=== PATIENT | male | born 1945 | race Caucasian/White ===

== ENCOUNTER 2017-05-28 07:20 | Day surgery (SDC) | payer MEDICARE ==
[2017-05-28] MEDS ORDERED: LACTATED RINGERS 1,000 ML IV ONE (07:40)
[2017-05-28] MEDS ORDERED: MIDAZOLAM 2 MG/2 ML VIAL IVP ONE (08:42)
[2017-05-28] MEDS ORDERED: fentaNYL 250 MCG/5 ML VIAL IVP ONE (08:42)
[2017-05-28 09:34] VITALS: BP 107/68
== END 2017-05-28 07:21 | disposition home or self-care (01) ==
LOC: SDS 07:20
PROVIDERS: ATTEND Surgery
PROC: 0DBM8ZZ Excision of Descending Colon, Via Natural or Artificial Opening Endoscopic (ICD-10-PCS; principal; 2017-05-28 08:30)
DX: Z12.11 Encounter for screening for malignant neoplasm of colon (principal); D12.4 Benign neoplasm of descending colon; K57.30 Diverticulosis of large intestine without perforation or abscess without bleeding; K21.9 Gastro-esophageal reflux disease without esophagitis; Z87.891 Personal history of nicotine dependence
CPT/HCPCS: 45380; J3010; J7120; 88305

== ENCOUNTER 2018-01-27 16:12 | Emergency (ER) | payer MEDICARE ==
--- NOTE | 2018-01-27 17:08 | XRAY Report ---
Reason: pain Procedure Date: 01/27/2018 Accession Number: [id number] / [id number] Procedure: XR - Shoulder 3 View RT CPT Code: FULL RESULT: EXAM: RIGHT SHOULDER RADIOGRAPHY EXAM DATE: 01/27/2018 04:36 PM. CLINICAL HISTORY: Pain. Fall on stairs. COMPARISON: None. TECHNIQUE: 3 views. FINDINGS: Bones: Normal. No fracture or bone lesion. Joints: Anterior shoulder dislocation. Acromioclavicular joint is unremarkable. Soft tissues: The visualized hemithorax is unremarkable. No soft tissue swelling. IMPRESSION: 1. Right anterior shoulder dislocation. 2. No fracture is identified. Post reduction axillary and Grashey views would be of value. RADIA
--- NOTE | 2018-01-27 17:22 | ED Physician Documentation ---
PD HPI UPPER EXT INJURY - Stated complaint Stated Complaint: SHOULDER INJURY - Chief complaint Chief Complaint: Trauma Ext - History obtained from History obtained from: Patient - History of Present Illness Location: Right, Shoulder Type of injury: Fall (he slipped on steps and was holding railing, with a twist of shoulder as he fell. Denies actually hitting ground with head/chest/abd. Pain in right shoulder.) Where injury occurred: Home Timing - onset: Today Timing - details: Abrupt onset, Still present Worsened by: Moving, Palpating Associated symptoms: No: Weakness, Numbness Contributing factors: No: Anticoagulated Similar symptoms before: Has not had sx before Recently seen: Not recently seen Review of Systems Cardiac: denies: Chest pain / pressure, Palpitations, Pedal edema Respiratory: denies: Dyspnea, Cough, Wheezing GI: denies: Nausea, Vomiting Neurologic: denies: Altered mental status, Headache, Head injury PD PAST MEDICAL HISTORY - Past Medical History Cardiovascular: High cholesterol Respiratory: None Neuro: None Endocrine/Autoimmune: None GI: GERD : Frequency HEENT: None Psych: Depression Musculoskeletal: None Derm: None - Past Surgical History General: Colonoscopy HEENT: Cataracts Derm: Skin cancer surgery - Present Medications Home Medications: Ambulatory Orders Medication Instructions Recorded Confirmed Citalopram [CeleXA] 10 mg PO DAILY 10/29/13 11/25/13 Lovastatin 20 mg PO DAILY 10/29/13 11/25/13 Trazodone HCl 100 mg ORAL DAILY 11/25/13 11/25/13 - Allergies Allergies/Adverse Reactions: Allergies Allergy/AdvReac Type Severity Reaction Status Date / Time No Known Drug Allergies Allergy Verified 01/27/18 16:28 - Social History Does the pt smoke?: No Smoking Status: Never smoker Does the pt drink ETOH?: No Does the pt have substance abuse?: No - Immunizations Immunizations are current?: Yes - POLST Patient has POLST: No PD ED PE NORMAL - Vitals Vital signs reviewed: Yes - General General: Alert and oriented X 3, No acute distress, Well developed/nourished - HEENT HEENT: Atraumatic, Pharynx benign - Neck Neck: Supple, no meningeal sign, No adenopathy - Cardiac Cardiac: RRR, No murmur - Respiratory Respiratory: Clear bilaterally - Derm Derm: Normal color, Warm and dry - Extremities Extremities: Other (shoulder pain and deformity c/w anterior dislocation. ) - Neuro Neuro: Alert and oriented X 3, No motor deficit, No sensory deficit Results - Vitals Vitals: Vital Signs - 24 hr 01/27/18 01/27/18 01/27/18 16:24 19:05 19:14 Temperature 36 C L Heart Rate 58 L 65 57 L Respiratory 22 19 12 Rate Blood Pressure 141/81 H O2 Saturation 99 98 01/27/18 01/27/18 01/27/18 19:30 19:32 19:34 Temperature Heart Rate 68 65 70 Respiratory 11 L 15 13 Rate Blood Pressure 135/70 H 138/75 H O2 Saturation 92 93 01/27/18 01/27/18 01/27/18 19:35 19:44 20:47 Temperature Heart Rate 71 68 64 Respiratory 20 18 15 Rate Blood Pressure 138/75 H 116/62 O2 Saturation 97 95 Oxygen O2 Source Room air Procedures - Reduction Body part reduced: Right, Shoulder Fracture or dislocation: Dislocation Anesthesia: Conscious sedation, Fentanyl Shoulder reduction technique: [place] / ext rotation Reduction aftercare: NV intact, Xray confirms reduction, Alignment improved, Sling, Patient tolerated well - Procedural sedation Sedation prep: Informed consent, Time out completed, Last meal (12 hours ago), PE performed, AHA 1 - healthy Sedation medications: fentanyl, propofol Patient status during sedation: Responds to tactile, Vitals remained stable, Maintained airway, Recovered uneventfully. No: Respiratory depression, Hypoxia, Needed resp assistance Sedation recovery: Recovered uneventfully, Back to baseline PD MEDICAL DECISION MAKING - ED course Complexity details: reviewed results, re-evaluated patient (improved after reduction), considered differential, d/w patient Departure - Departure Disposition: 01 Home, Self Care Clinical Impression: Rotator cuff (capsule) sprain Qualifiers: Encounter type: initial encounter Laterality: right Qualified Code(s): S43.421A - Sprain of right rotator cuff capsule, initial encounter Anterior shoulder dislocation Qualifiers: Encounter type: initial encounter Laterality: right Qualified Code(s): S43.014A - Anterior dislocation of right humerus, initial encounter Fall from slip, trip, or stumble Qualifiers: Encounter type: initial encounter Qualified Code(s): W01.0XXA - Fall on same level from slipping, tripping and stumbling without subsequent striking against object, initial encounter Condition: Stable Record reviewed to determine appropriate education?: Yes Instructions: ED Dislocation Shoulder Redu Follow-Up: [facility] [Provider Group] Luisito Mcdonnell MD [Primary Care Provider] - Comments: Sling for the right arm and shoulder for now until follow-up with orthopedics in about 1-1-1/2 weeks. Call tomorrow for an appointment. He can have the shoulder and arm out of the sling at times anyone to do purposeful range of motion gently while with the just hanging down a few times a day. No overhead reaching, push pull, lifting with the arm for likely 4-6 weeks. Follow-up with orthopedics to see when you can advance activity and use of it. Tylenol or ibuprofen or naproxen if needed for pains. Discharge Date/Time: 01/27/18 21:27
[2018-01-27] MEDS ORDERED: fentaNYL 100 MCG/2 ML VIAL IVP STA ×2 (17:31→18:40)
[2018-01-27] MEDS ORDERED: KETOROLAC 60 MG/2 ML VIAL IVP STA (17:31)
[2018-01-27] MEDS ORDERED: PROPOFOL 200 MG/20 ML VIAL IVP STA (18:39)
--- NOTE | 2018-01-27 20:26 | XRAY Report ---
Reason: post reduction Procedure Date: 01/27/2018 Accession Number: [id number] / [id number] Procedure: XR - Shoulder 2 View RT CPT Code: FULL RESULT: EXAM: RIGHT SHOULDER RADIOGRAPHY EXAM DATE: 01/27/2018 08:01 PM. CLINICAL HISTORY: Right shoulder dislocation. Postreduction. COMPARISON: Earlier study from 01/27/2018. TECHNIQUE: 2 views. FINDINGS: Bones: Calcific density noted overlying the right humeral head inferior to the right glenoid not definitively seen on the current study. Joints: Interval reduction of right shoulder dislocation in anatomic alignment. Degenerative changes of the right acromioclavicular joint. Soft tissues: The visualized hemithorax is unremarkable. No soft tissue swelling. IMPRESSION: 1. Interval reduction of right shoulder dislocation in anatomic alignment. 2. Calcific density, as described not definitively seen on the current study. RADIA
[2018-01-27 20:48] VITALS: BP 116/62
== END 2018-01-27 21:27 | disposition home or self-care (01) ==
LOC: ED 16:12
DX: S43.421A Sprain of right rotator cuff capsule, initial encounter (principal); S43.014A Anterior dislocation of right humerus, initial encounter; W10.9XXA Fall (on) (from) unspecified stairs and steps, initial encounter; X50.9XXA Other and unspecified overexertion or strenuous movements or postures, initial encounter; Y92.009 Unspecified place in unspecified non-institutional (private) residence as the place of occurrence of the external cause; E78.00 Pure hypercholesterolemia, unspecified
CPT/HCPCS: 23650; 94770; 96374; 99283; 99284

== ENCOUNTER 2024-10-15 14:44 | Inpatient (IN) ==
[2024-10-15] MEDS: PANTOPRAZOLE 40 MG VIAL IVP STA (15:03)
[2024-10-15] MEDS: SODIUM CHLORIDE 0.9% 1,000 ML IV STA ×2 (15:03→18:28)
--- NOTE | 2024-10-15 15:06 | ED Physician Documentation ---
History of Present Illness Stated complaint Stated Complaint: N/V Chief complaint Chief Complaint: Abd Pain History obtained from History obtained from: Patient History of Present Illness Timing: Prior to arrival Additonal information Additional information: Graciela is an 79-year-old male presenting to the emergency department with upper abdominal pain symptoms started last night after he eating some peanuts. He notes he ate some pork ribs and then a few hours later ate some peanuts This is when he developed some serious nausea and vomiting. He notes he was having some dark emesis with that he tried to drink some sips of water but was unable to keep anything down today. He has had a normal bowel movement today and has been passing gas he has no history of abdominal surgeries no fevers or chills. His emesis is dark brown/black in color. He is not on any blood thinners and has no history of GI bleeds or history of alcohol abuse. His pain is in his upper abdomen he feels bloated to his lower abdomen and describes similar symptoms that started last week around this time. Meds/Allgy Home Medications Ambulatory Orders Medication Instructions Recorded Confirmed citalopram 10 mg tablet 10 mg PO DAILY 10/29/1309/19 trazodone 100 mg tablet 100 mg ORAL DAILY 11/25/13 0 10/12/24 finasteride 5 mg tablet 5 mg PO QDAY #90 tabs 10/12/24 loperamide 2 mg capsule 2 mg PO Q6H PRN 09/03/24 (Anti-Diarrheal (loperamide)) loratadine 10 mg tablet 10 mg PO QDAY 09/03/2410/12 (Allerclear) simvastatin 20 mg tablet 20 mg PO QPM 09/03/24 tamsulosin 0.4 mg capsule 0.4 mg PO QDAY 09/03/2409/19 melatonin PO 10/12/24 10/12/24 saw palmetto PO 10/12/24 10/12/24 Allergies Allergies Allergy/AdvReac Type Severity Reaction Status Date / Time No Known Drug Allergies Allergy Verified 10/15/24 14:53 PFSH Active Problems All Active Problems Organoaxial gastric volvulus (Acute) Hyperglycemia (Acute) Mild recurrent major depression (Acute) Elevated blood pressure reading in office without diagnosis of hypertension (Acute) Bilateral epiphora (Acute) Chronic diarrhea (Acute) Prediabetes (Acute) Bilateral hearing loss (Acute) Allergic rhinitis (Acute) Insomnia (Acute) Hyperlipemia (Acute) BPH loc w urin obs/LUTS (Acute) Medical History Medical History Hx of malignant neoplasm of skin BCC 2007 Back 2018 scalp 2019 History of reduction of open dislocation (~01/18/17) shoulder Obesity Benign prostatic disease Hx of cataract Basal cell carcinoma (BCC) in situ of skin Dislocation of shoulder joint Surgical History Surgical History History of tonsillectomy (~02/18/1947) History of rectal surgery (~02/19/04) History of bilateral cataract extraction (~02/18/14) S/P Mohs surgery for basal cell carcinoma (~04/15/17) Hx of colonoscopy (~05/28/17) Family History Family History Mother Alzheimers disease Father No problems noted. Paternal grandfather Heart attack Maternal grandfather Heart attack Social History Social History Smoking Status: Smoker current status unk If you are a former smoker, when did you quit? (Date/Year): 1969 How many cigarettes a day do you smoke? (20 cigarettes=1 Pk): 20 Do you dip or chew tobacco?: No Patient requests smoking cessation consult: No Initiate information on smoking cessation: No Do you feel safe in your home environment?: Yes History of physical, verbal, emotional, or financial abuse?: No POLST Patient has POLST: No Exam Exam Vital Signs: Vital Signs x48h Temp Pulse Resp BP Pulse Ox 10/15/24 20:19 87 22 127/78 98 10/15/24 18:00 61 18 110/85 94 10/15/24 16:45 66 17 163/88 H 98 10/15/24 15:48 50 L 15 151/66 H 97 10/15/24 14:49 36.6 C 78 15 170/90 H 95 Constitutional normal general appearance Chest inspection of chest normal Respiratory breath sounds equal bilaterally, normal respiratory effort and clear to auscultation bilaterally Cardiovascular normal heart rate noted, regular rhythm noted, no gallop and no rub Gastrointestinal Abdomen tender in epigastric region no tenderness abdomen slightly distended on examination Genitourinary no CVA tenderness Results Vitals Vitals: Vital Signs - 24 hr 10/15/24 14:49 10/15/24 15:48 10/15/24 16:45 Temperature 36.6 C Pulse Rate 78 50 L 66 Respiratory Rate 15 15 17 Blood Pressure 170/90 H 151/66 H 163/88 H O2 Saturation 95 97 98 O2 Source Room air Room air Room air Pain Intensity 2 2 10/15/24 18:00 10/15/24 18:28 10/15/24 20:19 Temperature Pulse Rate 61 87 Respiratory Rate 18 22 Blood Pressure 110/85 127/78 O2 Saturation 94 98 O2 Source Room air Room air Pain Intensity 7 Oxygen O2 Source Room air Labs Labs: Laboratory Tests 10/15/24 10/15/24 10/15/24 15:08 15:29 15:53 WBC 13.3 H RBC 5.35 Hgb 16.3 Hct 47.3 MCV 88.4 MCH 30.5 MCHC 34.5 RDW 13.0 Plt Count 286 MPV 9.2 Neut # (Auto) 11.8 H Lymph # (Auto) 0.7 [place] # (Auto) 0.7 Eos # (Auto) 0.0 Baso # (Auto) 0.0 Absolute Nucleated RBC 0.00 Nucleated RBC % 0.0 PT 13.0 H INR 1.2 Sodium 140 Potassium 3.6 Chloride 103 Carbon Dioxide 28 Anion Gap 9.0 BUN 15 Creatinine 0.9 Estimated GFR (MDRD) 81 L Glucose 193 H Calcium 9.2 Magnesium 1.8 Total Bilirubin 0.8 AST 13 ALT 8 L Alkaline Phosphatase 71 Total Protein 6.3 L Albumin 3.9 Globulin 2.4 Albumin/Globulin Ratio 1.6 Lipase 12 PD Medical Decision Making ED course Complexity details: reviewed old records and reviewed results ED course: Patient 79-year-old male presents to the emergency department with nausea vomiting and upper abdominal pain symptoms started last night after eating some pork rib sleep peanuts. He has no history of upper GI bleeds he has no history of anticoagulant use no history of regular alcohol use. He has been spitting up some darker colored emesis more recently. He has been unable to keep anything down but did have a normal bowel movement this morning no fevers no chills no history of abdominal surgeries. Labs here in the emergency department show mild leukocytosis CMP is unremarkable pending urine analysis but lipase well within normal limits. Suspect patient may have a food bolus given sudden onset last night with pain in the epigastric region and having persistent vomiting episodes as well as patient noted symptoms seem to start last week as well with difficulty swallowing regularly. I reached out to Dr. Ignacio who came to evaluate patient, however pateint had received glucagon and had complete resolution of symptoms. Dr. Ignacio did come to evaluate patient at that time patient was tolerating ice chips well he continued to complain of upper abdominal pain and bloating will obtain CT abdomen pelvis I did confirm with Dr. Michaels's office and we will attempt to give oral contrast withn it. Patient unable to tolerate oral contrast began to have persistent nausea and vomiting again after taking ice chips. Patient was sent for CT abdomen with IV contrast here in the ED. CT abdomen/pelvis: 1. There is a large hiatal hernia with findings suggestive of associated organoaxial gastric volvulus. 2. No acute intra-abdominal abnormality otherwise. Patient continued to have nausea and vomiting. The ED CT is concerning for hiatal hernia with food causing significant obstruction. Reached out to Dr. Ignacio again and left a message about last time. Patient was given another dose of zofran here in the ED. His EKG did show prolonged QTc but he continues Dr. Ignacio came to evaluate the pateint here in the ED and he was taken to the OR immediately Discharge Plan Discharge Patient Disposition: ED Transfer to [facility] Condition: Fair Clinical Impression: Organoaxial gastric volvulus Interventions: ED Admission Assessment Last Done: 10/15/24 21:15 Vitals documented within 30 minutes of discharge?: Yes
[2024-10-15 15:16] LABS: HCT - HEMATOCRIT 47.3 % (42.0-52.0); HGB - HEMOGLOBIN 16.3 g/dL (14.0-18.0); MEAN PLATELET VOLUME 9.2 fL (7.4-11.4); NRBC ABSOLUTE COUNT (AUTO) 0.00 x10^3/uL; NUCLEATED RED BLOOD CELLS AUTO 0.0 /100WBC; PLT - PLATELET COUNT 286 10^3/uL (130-450); RED CELL DISTRIBUTION WIDTH 13.0 % (12.0-15.0)
[2024-10-15 15:52] LABS: ALT ALANINE AMINOTRANSFERASE 8.0 IU/L (10-60); AST ASPARTATE AMINOTRANSFERASE 13.0 IU/L (10-42); BUN - BLOOD UREA NITROGEN 15.0 mg/dL (6-20); CARBON DIOXIDE - CO2 28.0 mmol/L (21-32); CREATININE 0.9 mg/dL (0.6-1.3); GFR - MDRD 81.0 (>89)
[2024-10-15 16:02] LABS: INR 1.2 (0.8-1.2); PT - PROTHROMBIN TIME 13.0 secs (9.9-12.6)
[2024-10-15] MEDS: GLUCAGON 1 MG/ML VIAL IVP STA (16:19)
--- NOTE | 2024-10-15 16:24 | XRAY Report ---
PROCEDURE: XR Chest 1V INDICATIONS: chest pain, sob TECHNIQUE: One view of the chest was acquired. COMPARISON: None. FINDINGS: Surgical changes and devices: None. Lungs and pleura: No pleural effusions or pneumothorax. No consolidation. Mediastinum: Mediastinal contours appear normal. Heart size is normal. Bones and chest wall: No suspicious bony lesions. Overlying soft tissues appear unremarkable. IMPRESSION: No acute cardiopulmonary process. Reviewed by: Grady Conte MD on 10/15/2024 4:22 PM PDT Approved by: Grady Conte MD on 10/15/2024 4:22 PM PDT Station ID: [id number]
[2024-10-15] MEDS ORDERED: DIATRIZOATE MEGLU/DIATRIZO SOD 30 ML BOTTLE PO ONE (16:57)
--- NOTE | 2024-10-15 18:15 | CT Report ---
EXAM: CT Abdomen/Pelvis W DATE: 10/15/2024 4:51 PM PDT INDICATION: 79 years Male with upper abdominal pain, bloating TECHNIQUE: Using MDCT technique, axial images were obtained through the abdomen and pelvis, from the bases of the lungs through the pubic symphysis, without the intravenous administration of contrast. Sagittal and coronal MPR reconstructions were performed. Scan was performed in compliance with NEMA XR 29-213 Dose Limiting Standard. In accordance with CT protocol optimization, one or more of the following dose reduction techniques were utilized for this exam: automated exposure control, adjustment of mA and/or KV based on patient size, or use of iterative reconstructive technique. PROTOCOL: Routine LIMITATION: None. COMPARISON: None available. FINDINGS: Lung bases and visualized mediastinum: No consolidation or pleural effusion. Large hiatal hernia, containing most of the stomach. There is significant dilatation of the herniated portion as well as all of the intra-abdominal portion of the body, with decompression of the intra-abdominal antrum. There is also dilatation of the thoracic esophagus. Liver: No significant focal lesion seen. Spleen: No significant focal lesion seen. Pancreas: No significant focal lesion seen. Gallbladder and bile ducts: No biliary dilatation or significant focal lesion seen. Adrenal glands: No significant focal lesion seen. Kidneys and ureters: No calculi, hydronephrosis, or suspicious focal lesions are seen. GI tract, mesentery, and peritoneum: No significant lesion seen. The appendix is normal. Upper abdomen and retroperitoneal spaces: No significant adenopathy or other mass seen. Vascular structures: The abdominal aorta, major visceral branches and iliac arteries are normal in caliber. Urinary bladder: Bilateral small diverticula. No definite focal lesion. Reproductive organs: The prostate and seminal vesicles are unremarkable. Inguinal regions and abdominal wall: No hernia or other significant focal lesion seen. Osseous structures: No significant focal lesion seen. IMPRESSION: 1. There is a large hiatal hernia with findings suggestive of associated organoaxial gastric volvulus. 2. No acute intra-abdominal abnormality otherwise. Reviewed by: Rodo Vidal MD on 10/15/2024 6:14 PM PDT Approved by: Rodo Vidal MD on 10/15/2024 6:14 PM PDT Station ID: [id number]
[2024-10-15] MEDS: ONDANSETRON 4 MG/2 ML VIAL IVP STA (18:18)
[2024-10-15] MEDS: MORPHINE 2 MG/ML CARPUJECT IVP STA (18:28)
--- NOTE | 2024-10-15 20:40 | CONSULTATION NOTE ---
Referring Provider Name of Referring Provider:: Kristyn Elise PA-C Consult Date: 10/15/24 Chief Complaint Chief Complaint Chief Complaint: Nausea, vomiting, upper epigastric pain, bloating History of Present Illness Admitted From Admitted From:: Emergency department History Obtained From Records Reviewed: Yes History obtained from: Patient and chart Exam Limitations: None History of Present Illness HPI Comment/Other: This patient is very pleasant 79-year-old male evaluated in room 4 at [facility]'s emergency department at the request of Kristyn Elise PA-C. Initially she contacted me as she felt that the patient might have an esophageal obstruction. Gastrografin relieved many of his symptoms and I was told that my services were not required. Soon thereafter a CT scan with contrast was performed that showed organoaxial volvulus of the stomach and I was called back. The patient does not know what he did to cause this to occur and I explained to him that he did absolutely nothing to cause this to occur. The patient did have pork and peanuts last night (not together) and feels that this may have contributed to his symptoms but I assured him that it did not. His symptoms of nausea and vomiting started soon after having the aforementioned meal. Nausea and vomiting were the predominant feature. PFSH Active Problems All Active Problems (Updated 10/15/24 @ 19:52 by Kristyn Elise PA-C) Organoaxial gastric volvulus (Acute) Hyperglycemia (Acute) Mild recurrent major depression (Acute) Elevated blood pressure reading in office without diagnosis of hypertension (Acute) Bilateral epiphora (Acute) Chronic diarrhea (Acute) Prediabetes (Acute) Bilateral hearing loss (Acute) Allergic rhinitis (Acute) Insomnia (Acute) Hyperlipemia (Acute) BPH loc w urin obs/LUTS (Acute) Medical History Medical History (Updated 10/15/24 @ 19:52 by Kristyn Elise PA-C) Hx of malignant neoplasm of skin BCC 2007 Back 2018 scalp 2019 History of reduction of open dislocation (~01/18/17) shoulder Obesity Benign prostatic disease Hx of cataract Basal cell carcinoma (BCC) in situ of skin Dislocation of shoulder joint Surgical History Surgical History History of tonsillectomy (~02/18/1947) History of rectal surgery (~02/19/04) History of bilateral cataract extraction (~02/18/14) S/P Mohs surgery for basal cell carcinoma (~04/15/17) Hx of colonoscopy (~05/28/17) Family History Family History (Updated 09/03/24 @ 09:32 by Kristyn June MA) Mother Alzheimers disease Father No problems noted. Paternal grandfather Heart attack Maternal grandfather Heart attack Social History Social History If you are a former smoker, when did you quit? (Date/Year): 1969 How many cigarettes a day do you smoke? (20 cigarettes=1 Pk): 20 Do you dip or chew tobacco?: No Patient requests smoking cessation consult: No Initiate information on smoking cessation: No Do you feel safe in your home environment?: Yes History of physical, verbal, emotional, or financial abuse?: No POLST Patient has POLST: No Meds/Allgy Home Medications Ambulatory Orders Medication Instructions Recorded Confirmed citalopram 10 mg tablet 10 mg PO DAILY 10/29/1309/19 trazodone 100 mg tablet 100 mg ORAL DAILY 11/25/13 0 10/12/24 finasteride 5 mg tablet 5 mg PO QDAY #90 tabs 10/12/24 loperamide 2 mg capsule 2 mg PO Q6H PRN 09/03/24 (Anti-Diarrheal (loperamide)) loratadine 10 mg tablet 10 mg PO QDAY 09/03/2410/12 (Allerclear) simvastatin 20 mg tablet 20 mg PO QPM 09/03/24 tamsulosin 0.4 mg capsule 0.4 mg PO QDAY 09/03/2409/19 melatonin PO 10/12/24 10/12/24 saw palmetto PO 10/12/24 10/12/24 Allergies Allergies Allergy/AdvReac Type Severity Reaction Status Date / Time No Known Drug Allergies Allergy Verified 10/15/24 14:53 Results Lab Results Lab results reviewed: Yes 10/15/24 15:08 10/15/24 15:29 Other Lab Results: Lab Results x24hrs 10/15/24 10/15/24 10/15/24 Range/Units 15:53 15:29 15:08 WBC 13.3 H (4.8-10.8) x10^3/uL RBC 5.35 (4.70-6.10) 10^6/uL Hgb 16.3 (14.0-18.0) g/dL Hct 47.3 (42.0-52.0) % MCV 88.4 (80.0-94.0) fL MCH 30.5 (27.0-31.0) pg MCHC 34.5 (32.0-36.0) g/dL RDW 13.0 (12.0-15.0) % Plt Count 286 (130-450) 10^3/uL MPV 9.2 (7.4-11.4) fL Neut # (Auto) 11.8 H (1.5-6.6) 10^3/uL Lymph # (Auto) 0.7 L (1.5-3.5) 10^3/uL [place] # (Auto) 0.7 (0.0-1.0) 10^3/uL Eos # (Auto) 0.0 (0.0-0.7) 10^3/uL Baso # (Auto) 0.0 (0.0-0.1) 10^3/uL Absolute Nucleated RBC 0.00 x10^3/uL Nucleated RBC % 0.0 /100WBC PT 13.0 H (9.9-12.6) secs INR 1.2 (0.8-1.2) Sodium 140 (135-145) mmol/L Potassium 3.6 (3.5-4.5) mmol/L Chloride 103 (101-111) mmol/L Carbon Dioxide 28 (21-32) mmol/L Anion Gap 9.0 (6-13) BUN 15 (6-20) mg/dL Creatinine 0.9 (0.6-1.3) mg/dL Estimated GFR (MDRD) 81 L (>89) Glucose 193 H (74-104) mg/dL Calcium 9.2 (8.5-10.3) mg/dL Magnesium 1.8 (1.7-2.3) mg/dL Total Bilirubin 0.8 (0.2-1.0) mg/dL AST 13 (10-42) IU/L ALT 8 L (10-60) IU/L Alkaline Phosphatase 71 (42-121) IU/L Total Protein 6.3 L (6.4-8.9) g/dL Albumin 3.9 (3.2-5.5) g/dL Globulin 2.4 (2.1-4.2) g/dL Albumin/Globulin Ratio 1.6 (1.0-2.2) Lipase 12 (11-82) U/L Diagnostic Imaging Results Diagnostic Imaging Results: positive Final report reviewed, Read independently and Read contemporaneously Review of Systems Status of ROS: 10 or more systems reviewed and unremarkable except as noted in history and below Gastrointestinal Reports: Abdominal pain, Nausea, Vomiting and Feeling full early Exam Exam Vital Signs: Vital Signs x48h Temp Pulse Resp BP Pulse Ox 10/15/24 20:19 87 22 127/78 98 10/15/24 18:00 61 18 110/85 94 10/15/24 16:45 66 17 163/88 H 98 10/15/24 15:48 50 L 15 151/66 H 97 10/15/24 14:49 36.6 C 78 15 170/90 H 95 General: 79-year old male, appears stated age, well developed, well nourished evaluated in room 4 at [facility]'s emergency department HEENT: Normocephalic, atraumatic, extraocular movement intact, mucous membranes pink and moist, sclera anicteric and not injected Neck: Supple without pain on palpation, mass or bruit Cardiac: Regular rate and rhythm without rub, or gallop, positive murmur Chest: Clear to auscultation bilaterally Abdomen: Soft, nontender, decreased bowel sounds, no hepatomegaly, no splenomegaly Genitourinary: Deferred Rectal: Deferred Extremities: No gross neurovascular problem, no clubbing, cyanosis or edema Gait: Not evaluated as patient is on a gurney. Psychiatric: Alert and oriented to person place and time, asks and answers questions appropriately, mood and affect appropriate, he tends to repeat his questions Conclusion/Plan Problem List (1) Organoaxial gastric volvulus: Plan: Admit to the hospital as inpatient. Take to the operating room this evening for an exploratory laparotomy and reduction of this gastric volvulus. I explained to the patient that I would likely be placing feeding tubes to use as a way of ensuring that the stomach does not twist again. The patient vocalized an understanding. The indications, procedure, alternatives including no surgery, and possible complications including but not limited to bleeding requiring transfusion with all of its risks, infection, and were fully explained to the patient and all questions answered. Verbal and written consent has been obtained. The patient preparation for his surgery will have 2 g of Ancef. This will require general anesthesia. He will have TEDs and Venodyne's placed for prophylax against deep venous thrombosis. I explained to the patient that postoperatively he will be with his here in his hospital until he can ambulate, eat, pain is well-controlled, and there is no concerns for infection. Again he vocalized understanding. CPT 62892 Lab Results Lab results reviewed: Yes 10/15/24 15:08 10/15/24 15:29 Diagnostic Imaging Results Diagnostic Imaging Results: positive Final report reviewed, Read independently and Read contemporaneously
[2024-10-15] MEDS ORDERED: BUPIVACAINE 0.5%-EPI 1:200000 PF 10 ML VIAL ONE (20:45)
--- NOTE | 2024-10-15 20:54 | ANESTHESIA PROCEDURE NOTE ---
Pre-Anesthesia VS, & Labs Diagnosis Surgical Diagnosis:: gastric volvulous Procedure Procedure: open repair of gastric volvulus Vitals Vital Signs: Temp Pulse Resp BP Pulse Ox 36.6 C 87 22 127/78 98 10/15/24 14:49 10/15/24 20:19 10/15/24 20:19 10/15/24 20:19 10/15/24 20:19 Height (in): 5 ft 10 in Weight (kg): 99 kg Body Mass Index: 31.3 BMI Classification: Obese NPO NPO: >8 hours Lab Results Current Lab Results: Laboratory Tests 10/15/24 15:53: PT 13.0 H, INR 1.2 10/15/24 15:29: Sodium 140, Potassium 3.6, Chloride 103, Carbon Dioxide 28, Anion Gap 9.0, BUN 15, Creatinine 0.9, Estimated GFR (MDRD) 81 L, Glucose 193 H, Calcium 9.2, Magnesium 1.8, Total Bilirubin 0.8, AST 13, ALT 8 L, Alkaline Phosphatase 71, Total Protein 6.3 L, Albumin 3.9, Globulin 2.4, Albumin/Globulin Ratio 1.6, Lipase 12 10/15/24 15:08: WBC 13.3 H, RBC 5.35, Hgb 16.3, Hct 47.3, MCV 88.4, MCH 30.5, MCHC 34.5, RDW 13.0, Plt Count 286, MPV 9.2, Neut # (Auto) 11.8 H, Lymph # (Auto) 0.7 L, [place] # (Auto) 0.7, Eos # (Auto) 0.0, Baso # (Auto) 0.0, Absolute Nucleated RBC 0.00, Nucleated RBC % 0.0 Lab results reviewed: Yes 10/15/24 15:08 10/15/24 15:29 Meds/Allgy Home Medications Ambulatory Orders Medication Instructions Recorded Confirmed citalopram 10 mg tablet 10 mg PO DAILY 10/29/1309/19 trazodone 100 mg tablet 100 mg ORAL DAILY 11/25/13 0 10/12/24 finasteride 5 mg tablet 5 mg PO QDAY #90 tabs 10/12/24 loperamide 2 mg capsule 2 mg PO Q6H PRN 09/03/24 (Anti-Diarrheal (loperamide)) loratadine 10 mg tablet 10 mg PO QDAY 09/03/2410/12 (Allerclear) simvastatin 20 mg tablet 20 mg PO QPM 09/03/24 tamsulosin 0.4 mg capsule 0.4 mg PO QDAY 09/03/24 08/07/12 melatonin PO 10/12/24 10/12/24 saw palmetto PO 10/12/24 10/12/24 Allergies Allergies Allergy/AdvReac Type Severity Reaction Status Date / Time No Known Drug Allergies Allergy Verified 10/15/24 14:53 PFSH Active Problems All Active Problems Organoaxial gastric volvulus (Acute) Hyperglycemia (Acute) Mild recurrent major depression (Acute) Elevated blood pressure reading in office without diagnosis of hypertension (Acute) Bilateral epiphora (Acute) Chronic diarrhea (Acute) Prediabetes (Acute) Bilateral hearing loss (Acute) Allergic rhinitis (Acute) Insomnia (Acute) Hyperlipemia (Acute) BPH loc w urin obs/LUTS (Acute) Medical History Medical History Hx of malignant neoplasm of skin BCC 2006 Back 2018 scalp 2019 History of reduction of open dislocation (~01/18/17) shoulder Obesity Benign prostatic disease Hx of cataract Basal cell carcinoma (BCC) in situ of skin Dislocation of shoulder joint Surgical History Surgical History History of tonsillectomy (~02/18/1947) History of rectal surgery (~02/19/04) History of bilateral cataract extraction (~02/18/14) S/P Mohs surgery for basal cell carcinoma (~04/15/17) Hx of colonoscopy (~05/28/17) Family History Family History Mother Alzheimers disease Father No problems noted. Paternal grandfather Heart attack Maternal grandfather Heart attack Social History Social History If you are a former smoker, when did you quit? (Date/Year): 1969 How many cigarettes a day do you smoke? (20 cigarettes=1 Pk): 20 Do you dip or chew tobacco?: No Patient requests smoking cessation consult: No Initiate information on smoking cessation: No Do you feel safe in your home environment?: Yes History of physical, verbal, emotional, or financial abuse?: No POLST Patient has POLST: No Results EKG Results EKG Comparison: Reviewed EKG (sinus to sinus kendall with prolonged QT) Anesthesia Exam (Expanded) Exam General: Mild distress Dental: WNL Mouth Openin Fingerbreadth Neck Mobility: Normal Mallampati classification: II Thyromental Distance: 4-6 cm Respiratory: Lungs clear Cardiovascular: Regular rate Exam Exam Vital Signs: Vital Signs x48h Temp Pulse Resp BP Pulse Ox 10/15/24 20:19 87 22 127/78 98 10/15/24 18:00 61 18 110/85 94 10/15/24 16:45 66 17 163/88 H 98 10/15/24 15:48 50 L 15 151/66 H 97 10/15/24 14:49 36.6 C 78 15 170/90 H 95 Plan Plan Anesthesia Type: General Consent for Procedure(s) Verified and Reviewed: Yes Code Status: Attempt Resuscitation ASA Classification ASA classification: 2-Mild systemic disease Is this case an emergency?: Yes
[2024-10-15] MEDS ORDERED: fentaNYL 100 MCG/2 ML VIAL ONE (21:03)
[2024-10-15] MEDS ORDERED: PROPOFOL 200 MG/20 ML VIAL IVP ONE (21:03)
[2024-10-15] MEDS ORDERED: LIDOCAINE-PF 2% 10 ML AMP SUBQ ONE (21:03)
[2024-10-15] MEDS ORDERED: ROCURONIUM 50 MG/5 ML VIAL ONE (21:03)
[2024-10-15] MEDS ORDERED: KETAMINE 500 MG/10 ML VIAL ONE (21:08)
[2024-10-15] MEDS ORDERED: PHENYLEPHRINE HCL 0.5 MG/5 ML AMPULE ONE (21:31)
[2024-10-15] MEDS ORDERED: HYDROmorphone 1 MG/ML CARPUJECT ONE (21:50)
[2024-10-15] MEDS ORDERED: LABETALOL 5 MG/1 ML 20 ML MDV ONE (21:53)
[2024-10-15] MEDS ORDERED: DEXAMETHASONE 4 MG/ML VIAL ONE (22:17)
[2024-10-15] MEDS ORDERED: fentaNYL 100 MCG/2 ML VIAL IVP PRN (22:42)
[2024-10-15] MEDS ORDERED: HYDROmorphone 0.5 MG/0.5 ML SYRINGE IVP PRN ×2 (22:42→23:55)
[2024-10-15] MEDS ORDERED: MORPHINE 2 MG/ML CARPUJECT IVP PRN (22:42)
[2024-10-15] MEDS ORDERED: NALOXONE 0.4 MG/ML VIAL IVP PRN (22:42)
[2024-10-15] MEDS ORDERED: METOCLOPRAMIDE 10 MG/2 ML VIAL IVP PRN (22:42)
[2024-10-15] MEDS ORDERED: ATROPINE ABBOJECT 1 MG/10 ML SYRINGE IVP PRN (22:42)
[2024-10-15] MEDS ORDERED: ePHEDrine 50 MG/ML VIAL IVP PRN (22:42)
[2024-10-15] MEDS ORDERED: SUGAMMADEX 200 MG/2 ML VIAL IVP ONE (23:05)
--- NOTE | 2024-10-15 23:42 | OPERATIVE REPORT ---
Operative Report General Admit Date: 10/15/24 Procedure Data: Operation Date: 10/15/24 21:00 Proposed Procedures p Exploratory Laparotomy(Not Applicable) - Elliott Ignacio MD Actual Procedures p REDUCTION OF ORGANOAXIAL GASTRIC VOLVULUS W/GASTROPEXY (Not Applicable) - Elliott Ignacio MD Pre-Op Diagnosis: ORGANOAXIAL GASTRIC VOLVULUS RESULTING IN OBSTRUCTION s Esophagogastroduodenoscopy(Not Applicable) - Elliott Ignacio MD Anesthesia Type General Case Staff Anesthesia Provider: Bob Francis Case Times Procedure Start: 10/15/24 21:42 Time out: 10/15/24 21:41 Other Other Information/Narrative: Patient Name: Thompson Jackson Patient date: 1945 Patent MR number: [id number] Date of procedure: 10/15/2024 Preoperative Diagnosis/Indications: Organoaxial gastric volvulus Postoperative Diagnosis: Organoaxial gastric volvulus with esophageal food bolus Procedure: Reduction of organoaxial gastric volvulus, gastropexy, placement of feeding tube, esophagogastroduodenoscopy (reported separately) Fluids: 1700 mL EBL: 100 mL Urine output: 150 mL Drains: None Findings: As stated above Complications: None Surgeon/Dictated by: Elliott Ignacio MD Hyperbaric Tech: Srinivasa Francis CRNA Anesthesia type: General Endotracheal +30 mL half percent Marcaine with epinephrine Procedure: After verbal and written informed consent was obtained detailing the operation, the alternatives the operation including no operation, risks of infection, b leeding requiring transfusion with its risks, nerve injury, and and after I met with the patient confirming the surgery and the site of surgery, the patient was brought to the operative suite and placed supine on the operating table. Great care was taken to avoid pressure points to prevent pressure necrosis or nerve injury. Monitoring devices were applied along with TEDs and pneumatic compression stockings (to prevent DVT). An intravenous line was started and anesthesia was maintained throughout the case. The patient was monitored for cardiac, blood pressure, and oxygen saturation continuously. The patient received preoperative antibiotics for surgical prophylaxis. Srinivasa Francis CRNA sedated and anesthetized the patient for the entire procedure. The patient was prepped and draped in the usual sterile manner. A "time in" then confirmed that the patient was identified with 3 identifiers (name, date, and medical record number), the history and physical was updated and in the chart, the signed consent confirming the procedure was in the chart, the patient was in the correct position, the aforementioned prophylactic measures were in place or given, we had the correct personnel and equipment to complete the procedure and that anesthesia and the surgical team were given an opportunity to express any concerns. With the agreement of everyone in the room we proceeded with the operation. I incised the skin at the midline starting at the xiphoid taking it down to just above the umbilicus using the 10 blade scalpel. Dissection down to the linea alba was completed using Bovie electrocautery. Hemostasis was obtained using Bovie electrocautery. The patient was a bit oozy with blood but this was controlled with Bovie electrocautery. The linea alba was incised as was the peritoneum gaining entry into the abdomen without incident. As expected the stomach was located quite high in the abdomen and could not be seen adequately with this incision and as such I extended the incision alongside the xiphoid on the patient's left-hand side. This was done in a similar manner to what was described above. Upon entry to the abdomen it was clear that the stomach was rotated from the patient's left to the right and involved in a very tight small hiatal hernia. With gentle traction and with a [id number] motion I was able to reduce the stomach out of that hernia. With the stomach out of the hernia there was 1 area that had some ecchymosis on the fat on the greater curvature but this was not compromised fat. Similarly at the medial aspect along the gastric wall there was a little bit of a bruise but again this was not compromised. This did not appear to have occurred by my actions but rather the location and entrapment within the hernia. I did not feel that these compromised the stomach in any way. Even with the stomach mobilized out of the hernia the vast majority of the stomach was located above the costal angles. This is usually the case but this was even more so in this patient. The very small nature of the hiatal hernia defect makes it very unlikely for this to recur but to prevent this on a pexied the fat on the greater curvature to the left abdominal wall in an interrupted fashion with 2-0 Vicryl's. I then further secured the stomach by placing a gastrostomy tube in the distal third of the stomach. I completed this by placing two 3-0 silk pursestring sutures around the anterior wall at the distal third near the greater curvature. I placed the 18 [place] gastrostomy tube through the skin through a separate stab incision just to the right of the initial incision. I created a small gastrostomy using a combination of Bovie electrocautery as well as a Latricia and in this gastrostomy I placed the gastrostomy tube and inflated the balloon with 10 mL of sterile saline. I then secured both pursestring sutures about the gastrostomy tube. The anterior wall of the stomach was then secured to the peritoneum on the right side of the patient's abdomen using interrupted 3-0 silk sutures. The bumper was tied with a 2-0 silk at 7 cm which allowed for the gastrostomy tube to be placed up against the abdominal wall without undue tension on the gastric wall. With is completed I elected to visualize this repair via a esophagogastroduodenoscopy. This will be reported formally separately but for the flow of this dictation there was a large amount of undigested food within the esophagus and photographs were taken and the scope entered the stomach without difficulty and without any abnormal findings. The contents of the st omach were sucked out to help decrease any chance of aspiration at the time of extubation. Photographs were taken of the stomach showing that the gastrostomy tube was in good position. Additionally there were no areas of the stomach that appeared compromised. I was satisfied with his repair. The abdomen was then copiously irrigated using 1 L of warm sterile saline. The fascia at the midline was closed using a running 2-0 PDS which was started superiorly and inferiorly and running towards the middle and tied it together. The skin was approximated using skin boris. A silver impregnated dressing was applied. The gastrostomy tube is placed to Hair drainage. It is not to be used to feed the patient. It is also not to be placed to suction. At this point a "timeout" was performed that confirmed that all counts were correct, the procedure that was performed, the blood loss, the IV fluids administered, the patient's condition and any concerns of the operating team had. Having tolerated the procedure well, the patient was extubated and taken to recovery room in good and stable condition. Today's documentation has been created with the assistance of voice recognition software. Therefore, it may contain anomalous punctuation, anomalous independent mis-recognitions, word substitutions, insertions or omissions. Occasional wrong-word or phonetically similar substitutions may also occur all due to the inherent limitations of voice recognition software. I have attempted to correct the above but I recommend that the chart be read carefully to recognize, using context, where the substitutions, insertions or omissions may have occurred.
[2024-10-15] MEDS ORDERED: ONDANSETRON 4 MG/2 ML VIAL IVP PRN (23:55)
[2024-10-15] MEDS ORDERED: SODIUM CHLORIDE FLUSH 0.9% 10 ML SYRINGE IVP PRN (23:55)
[2024-10-15] MEDS ORDERED: PHENOL THROAT SPRAY 177 ML MM PRN (23:55)
--- NOTE | 2024-10-16 00:55 | ANESTHESIA POST OP EVALUATION ---
Anesthesia Post Eval Post Anesthesia Eval Vitals: Last Vital Signs Temp 36.7 C 10/16/24 00:45 Pulse 81 10/16/24 00:50 Resp 14 10/16/24 00:50 BP 111/37 L 10/16/24 00:50 Pulse Ox 95 10/16/24 00:50 CV Function Including HR & BP: Stable Pain Control: Satisfactory Nausea & Vomiting: Negative Mental Status: Baseline Respiratory Status: Airway Patent Other Details/Therapies Other Details/Therapies: continuous pulse ox and o2 to keep sats>92 ordered
[2024-10-16] MEDS ORDERED: SODIUM CHLORIDE FLUSH 0.9% 10 ML SYRINGE IVP SCH ×2 (01:00→09:00)
[2024-10-16] MEDS ORDERED: SODIUM CHLORIDE FLUSH 0.9% 10 ML SYRINGE IVP PRN (02:13)
[2024-10-16] MEDS ORDERED: LACTATED RINGERS 1,000 ML ONE (02:28)
[2024-10-16] MEDS ORDERED: HEPARIN 5,000 UNIT/ML VIAL ONE (02:29)
[2024-10-16] MEDS: LACTATED RINGERS 1,000 ML IV SCH ×2 (02:34→07:48)
[2024-10-16] MEDS: SODIUM CHLORIDE FLUSH 0.9% 10 ML SYRINGE IVP SCH (03:45)
[2024-10-16 07:40] LABS: ALT ALANINE AMINOTRANSFERASE 8.0 IU/L (10-60); AST ASPARTATE AMINOTRANSFERASE 18.0 IU/L (10-42); BUN - BLOOD UREA NITROGEN 11.0 mg/dL (6-20); CARBON DIOXIDE - CO2 27.0 mmol/L (21-32); CREATININE 0.8 mg/dL (0.6-1.3); GFR - MDRD 93.0 (>89)
[2024-10-16] MEDS: HEPARIN 5,000 UNIT/ML VIAL SUBQ SCH ×3 (07:48→12:30)
[2024-10-16 08:04] LABS: HCT - HEMATOCRIT 42.9 % (42.0-52.0); HGB - HEMOGLOBIN 14.3 g/dL (14.0-18.0); MEAN PLATELET VOLUME 8.6 fL (7.4-11.4); NRBC ABSOLUTE COUNT (AUTO) 0.00 x10^3/uL; NUCLEATED RED BLOOD CELLS AUTO 0.0 /100WBC; PLT - PLATELET COUNT 257 10^3/uL (130-450); RED CELL DISTRIBUTION WIDTH 13.3 % (12.0-15.0)
[2024-10-16] MEDS: PANTOPRAZOLE 40 MG VIAL IVP SCH (08:37)
[2024-10-16] MEDS: SODIUM CHLORIDE FLUSH 0.9% 10 ML SYRINGE IVP PRN (08:37)
--- NOTE | 2024-10-16 08:52 | PROVIDER PROGRESS NOTE ---
Progress Note Progress Note Progress Note: General Surgery Progress Note Hospital Day # 2 - Gastric volvulus POD # 1, Exploratory laparotomy, gastropexy, gastrostomy tube placement Code Status: Full ASSESSMENT: 1) No immediate post-op issues PLAN: 1) Clear liquid diet this morning. If he tolerates this, will clamp gastrostomy tube and advance diet as tolerated 2) Ambulate in hallway 3) Multimodality post-op pain control 4) The esophageal obstruction was likely due to the organo-axial rotation of the stomach (since there was no evidence of an esophageal stricture) and this should have resolved with the gastropexy. Even so, I discussed with the patient the need to eat slowly, chew his food thoroughly, and drink plenty of liquid with meals. <><><><><> PERTINENT INTERVAL ISSUES: Patient anxious to go home because he has a dog. A neighbor is helping for the time being but he is concerned. S: Comfortable; No nausea or emesis; Incisional pain under good control OBJECTIVE: I/O: 4,853/775 VS: BP 145/69; P 61; RR 18; T 97 EXAMINATION: MENTAL STATUS: AAO; Comfortable EYES: Pupils equal, round and reactive to light, sclera anicteric, EARS, NOSE, MOUTH, THROAT: Normal hearing, Oral mucous membranes moist and without lesions; NECK: No crepitus, lymphadenopathy, or thyromegaly LUNGS: Clear to auscultation without wheezing; No use of accessory muscles to breathe CARDIOVASCULAR: Heart-NSR without murmurs; ABD: Soft, non-tender, no distension, dressing dry; + BS; Gastrostomy tube to gravity drainage and with scant output EXTREMITIES: No clubbing, cyanosis, infections SKIN: Anicteric; No rashes, lesions, ulcerations LABS: WBC 16.2K; H&H 14.3/42.9; PLT 257K; NA 140; K 4.2; Cr 0.8; Glu 178 CULTURES: None Pending IMAGING: None today ANTIMICROBIALS: Prophylactic completed PAIN CONTROL: Dilaudid IV prn, IV Acetaminophen VTEP: Chemical: Heparin, 5,000 units, SQ, Q 12 hrs Mechanical: SCD Oswald Champion MD, FACS General Surgery Service
[2024-10-16] MEDS: DEXTROSE-SOD CHLOR W/20 MEQ K 1,000 ML IV SCH (09:42)
--- NOTE | 2024-10-16 11:50 | PHARMACY PROGRESS NOTE ---
Best Possible Medication History Admit Date and Time: 10/15/245 Home Medications Medication Instructions Recorded Confirmed Type citalopram 10 mg tablet 10 mg PO DAILY 10/29/1309/19 History trazodone 100 mg tablet 100 mg PO QPM 11/25/1310/16 History loperamide 2 mg capsule 2 mg PO Q6H PRN diarrhea 10/16/24 History (Anti-Diarrheal (loperamide)) loratadine 10 mg tablet 10 mg PO DAILY 09/03/2409/19 History (Allerclear) simvastatin 20 mg tablet 20 mg PO QPM 09/03/24 History tamsulosin 0.4 mg capsule 0.8 mg PO QPM 09/03/2410/16 History finasteride 5 mg tablet 5 mg PO DAILY 10/16/2410/16 History melatonin 3 mg capsule 12 mg PO HS PRN sleep 10/16/24 History saw palmetto 450 mg capsule 450 mg PO DAILY 10/16/24 0 10/16/24 History Processed by: Pharmacy Medications reviewed in ED?: No Medication History completed: Yes Patient Interview: Completed Secondary Source(s): Pharmacy records and Insurance records [facility] Statement: As the person ultimately responsible for medication therapy, providers are able to order a medication from an existing home medication list in [facility] via the "Reconcile Routine" prior to Confirmation of that medication by arch support technician. Such practice is discouraged except when the physician, in their clinical judgment, deems that a medical need exists for a medication without regard to previous use.
--- NOTE | 2024-10-16 18:42 | PROVIDER PROGRESS NOTE ---
Progress Note Progress Note Progress Note: General Surgery Progress Note Notified by nursing staff that left arm is swollen above wrist IV site. Also, patient is tolerating po liquids with little output from gastrostomy. Patient is on SQ heparin TID. Plan: 1) Switch IV to right arm 2) Elevate left arm on two pillows 3) US left upper extremity to search for DVT 4) Continue clears slowly tonight. Consider clamping G-tube tomorrow Oswald Champion MD, FACS General Surgery Service
[2024-10-16] MEDS: ACETAMINOPHEN 1,000 MG/100 ML 1,000 MG/100 ML BAG IV PRN (21:45)
--- NOTE | 2024-10-17 09:29 | PROVIDER PROGRESS NOTE ---
Progress Note Progress Note Progress Note: General Surgery Progress Note Hospital Day # 3 - Gastric volvulus POD # 2, Exploratory laparotomy, gastropexy, gastrostomy tube placement Code Status: Full ASSESSMENT: 1) Progressing well PLAN: 1) Clamp gastrostomy tube 2) Advance diet as tolerated 3) Multivits and Nutritional Supplements 4) Ambulate in hallway 5) Continue multimodality post-op pain control - Add Ibuprofen and Oxycodone to regimen 6) Monitor midline wound with daily dressing changes 7) IV to saline lock 8) Laxatives as needed 9) Remove hubbard 10) Keep LUE elevated 11) Expect discharge in a couple days <><><><><> PERTINENT INTERVAL ISSUES: None S: Comfortable; No nausea or emesis; Incisional pain under good control; Tolerating diet advancement without GI symptoms OBJECTIVE: I/O: 3,240/1,375 VS: BP 135/55; P 66; RR 14; T 36.7 EXAMINATION: MENTAL STATUS: AAO; Comfortable EYES: Pupils equal, round and reactive to light, sclera anicteric, EARS, NOSE, MOUTH, THROAT: Normal hearing, Oral mucous membranes moist and without lesions; NECK: No crepitus, lymphadenopathy, or thyromegaly LUNGS: Clear to auscultation without wheezing; No use of accessory muscles to breathe CARDIOVASCULAR: Heart-NSR without murmurs; ABD: Soft, no distension, dressing dry with erythema near left superior aspect - dressing removed and boris in place without drainage from midline wound. No clear evidence of cellulitis near the superior aspect of the wound - looks more like SQ ecchymosis. Gastrostomy tube flange in place and secure; + BS; Gastrostomy tube to gravity drainage and with scant output EXTREMITIES: Decreased swelling LUE SKIN: Anicteric; No rashes, lesions, ulcerations LABS: None pending CULTURES: None Pending IMAGING: US LUE pending ANTIMICROBIALS: Prophylactic completed PAIN CONTROL: Dilaudid IV prn, IV Tylenol VTEP: Chemical: Heparin, 5,000 units, SQ, Q 8 hrs Mechanical: SCD Oswald Champion MD, FACS General Surgery Service
[2024-10-17] MEDS ORDERED: oxyCODONE 5 MG TABLET PO PRN (09:38)
[2024-10-17] MEDS: IBUPROFEN 600 MG TABLET PO SCH (11:04)
[2024-10-17] MEDS: ACETAMINOPHEN 325 MG TABLET PO SCH (11:05)
--- NOTE | 2024-10-18 08:25 | PROVIDER PROGRESS NOTE ---
Progress Note Progress Note Progress Note: General Surgery Progress Note Hospital Day # 4 - Gastric volvulus POD # 3, Exploratory laparotomy, gastropexy, gastrostomy tube placement Code Status: Full ASSESSMENT: 1) Progressing well; constipated PLAN: 1) Advance diet as tolerated 2) Ambulate in hallway 3) Continue multimodality post-op pain control 4) Laxatives as needed 5) Expect discharge in a couple days <><><><><> PERTINENT INTERVAL ISSUES: None S: Comfortable; No nausea or emesis; Tolerating soft diet; + flatus but no BM yet; Decreased swelling LUE OBJECTIVE: I/O: 2150/825 VS: BP 140/61; P 56; RR 16; T 36.6 EXAMINATION: MENTAL STATUS: AAO; Comfortable EYES: Pupils equal, round and reactive to light, sclera anicteric, EARS, NOSE, MOUTH, THROAT: Normal hearing, Oral mucous membranes moist and without lesions; LUNGS: Clear to auscultation without wheezing; No use of accessory muscles to breathe CARDIOVASCULAR: Heart-NSR without murmurs; ABD: Soft, no distension, dressing dry without associated erythema; + BS; Gastrostomy tube clamped EXTREMITIES: Decreased swelling LUE SKIN: Anicteric; No rashes, lesions, ulcerations LABS: None pending CULTURES: None Pending IMAGING: US LUE - Official result pending but my interpretation does not show evidence of a DVT of the LUE venous system ANTIMICROBIALS: Prophylactic completed PAIN CONTROL: Dilaudid IV prn, IV Tylenol VTEP: Chemical: Heparin, 5,000 units, SQ, Q 8 hrs Mechanical: SCD Oswald Champion MD, FACS General Surgery Service
--- NOTE | 2024-10-18 13:05 | Ultrasound Report ---
PROCEDURE: US Venous Duplex LT INDICATIONS: Evaluate for left arm DVT TECHNIQUE: Real-time imaging, as well as color and pulse Doppler interrogation, were performed of the lower extremity deep veins from the inguinal ligament to the popliteal fossa. Attempted visualization of the calf veins was performed. COMPARISON: None. FINDINGS: The deep veins are normally compressible, and free of intraluminal thrombus. Color and pulse Doppler demonstrate normal phasic intraluminal flow. There is normal augmentation response to distal compression maneuver. IMPRESSION: No deep venous thrombosis of the visualized lower extremity. Reviewed by: Jacinta Mccain MD on 10/18/2024 1:04 PM PDT Approved by: Jacinta Mccain MD on 10/18/2024 1:04 PM PDT Station ID: [id number]
[2024-10-19 05:12] VITALS: O2SAT 95
[2024-10-19] MEDS: PANTOPRAZOLE 40 MG TABLET PO SCH (06:33)
--- NOTE | 2024-10-19 08:11 | PROVIDER PROGRESS NOTE ---
Progress Note Progress Note Progress Note: General Surgery Progress Note Hospital Day # 5 - Gastric volvulus POD # 4, Exploratory laparotomy, gastropexy, gastrostomy tube placement Code Status: Full ASSESSMENT: 1) Progressing well; constipation resolved PLAN: 1) Continue general diet 2) Ambulate in hallway 3) Continue multimodality post-op pain control 4) Laxatives as needed 5) Expect discharge later today or tomorrow <><><><><> PERTINENT INTERVAL ISSUES: None S: Comfortable; No nausea or emesis; Tolerating general diet; Large BM yesterday afternoon; LUE swelling resolved OBJECTIVE: VS: BP 129/50; P 54; RR 16; T 36.6 EXAMINATION: MENTAL STATUS: AAO; Comfortable EYES: Pupils equal, round and reactive to light, sclera anicteric, EARS, NOSE, MOUTH, THROAT: Normal hearing, Oral mucous membranes moist and without lesions; ABD: Soft, no distension, dressing dry without associated erythema; + BS; Gastrostomy tube clamped SKIN: Anicteric; No rashes, lesions, ulcerations LABS: None pending CULTURES: None Pending IMAGING: None Pending ANTIMICROBIALS: Prophylactic completed PAIN CONTROL: Dilaudid IV prn, PO Tylenol, Ibuprofen, Oxycodone VTEP: Chemical: Heparin, 5,000 units, SQ, Q 8 hrs Mechanical: SCD Oswald Champion MD, FACS General Surgery Service
[2024-10-19] MEDS: ONDANSETRON 4 MG/2 ML VIAL IVP PRN (13:51)
--- NOTE | 2024-10-19 18:20 | PROVIDER PROGRESS NOTE ---
Progress Note Progress Note Progress Note: General Surgery Progress Note S: Feels good; Tolerating a regular diet; Ambulatory; Bowels functional; Incision pain controlled with oral Tylenol/Ibuprofen O: VSS, afeb; Abdomen is soft; dressing dry A: Ready for discharge P: Discharge to home; Does not want narcotics; May shower; Diet as tolerated; FU 7-10 days for staple removal and management of gastrostomy Oswald Champion MD, FACS General Surgery Service
[2024-10-19 19:35] VITALS: BP 102/66
[2024-10-19 19:55] VITALS: TEMP 96.8
--- NOTE | 2024-10-20 18:06 | Discharge Summary ---
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 Initially she contacted me as she felt that the patient might have an esophageal obstruction. Gastrografin relieved many of his symptoms and I was told that my services were not required. Soon thereafter a CT scan with contrast was performed that showed organoaxial volvulus of the stomach and I was called back. The patient does not know what he did to cause this to occur and I explained to him that he did absolutely nothing to cause this to occur. The patient did have pork and peanuts last night (not together) and feels that this may have contributed to his symptoms but I assured him that it did not. His symptoms of nausea and vomiting started soon after having the aforementioned meal. Nausea and vomiting were the predominant feature. CONSULTS | PROCEDURES Procedures: 10/15/2024 - Exploratory laparotomy, gastropexy, gastrostomy tube placement HOSPITAL COURSE Hospital Course: Uncomplicated. Diet advanced slowly and gastrostomy clamped on POD # 2. Ambulation initiated POD #1. Multimodality pain control and VTEP in effect the entire post-op course. Patient discharged on a general diet. His midline wound was healing without bleeding or infection. He passed urine and had several bowel motions before discharge. His pain was controlled woth oral Tylenol and Ibuprofen. ALLERGIES Allergies Allergy/AdvReac Type Severity Reaction Status Date / Time No Known Drug Allergies Allergy Verified 10/15/24 14:53 MEDICATIONS Ambulatory Orders Medication Instructions Recorded Confirmed citalopram 10 mg tablet 10 mg PO DAILY 10/29/1309/19 trazodone 100 mg tablet 100 mg PO QPM 11/25/1310/16 loperamide 2 mg capsule 2 mg PO Q6H PRN diarrhea 10/16/24 (Anti-Diarrheal (loperamide)) loratadine 10 mg tablet 10 mg PO DAILY 09/03/2409/19 (Allerclear) simvastatin 20 mg tablet 20 mg PO QPM 09/03/24 tamsulosin 0.4 mg capsule 0.8 mg PO QPM 09/03/2410/16 finasteride 5 mg tablet 5 mg PO DAILY 10/16/2410/16 melatonin 3 mg capsule 12 mg PO HS PRN sleep 10/16/24 saw palmetto 450 mg capsule 450 mg PO DAILY 10/16/24 0 10/16/24 acetaminophen 325 mg tablet 650 mg (2 x 325 mg) PO Q6H PRN 10/19/24 fever or pain #90 tabs ibuprofen 600 mg tablet 600 mg PO TIDWM #90 tabs 03/14 PHYSICAL EXAM AT DISCHARGE General Appearance: positive No acute distress and Alert Eyes Bilateral: positive Normal inspection and PERRL Neck: positive Nml inspection Respiratory: positive Chest non-tender and No respiratory distress Cardiovascular: positive Regular rate & rhythm and No murmur Abdomen: positive Non-tender, No distention and Other (Wound healing well; Gastrostomy clamped and secure) Back: positive Nml inspection Skin: positive Color nml LABS 10/16/24 06:55 10/16/24 06:55 DIAGNOSTIC IMAGING Diagnostic Imaging Results: Final report reviewed FOLLOW UP Follow Up: General Surgery Clinic in 7-10 days TIME SPENT Time Spent in Discharge (Minutes): 30 Discharge Plan Discharge Patient Disposition: Home, Self Care Condition: Fair Prescriptions: New acetaminophen 325 mg Tablet 650 mg PO Q6H PRN (Reason: fever or pain) Qty: 90 0RF ibuprofen 600 mg Tablet 600 mg PO TIDWM Qty: 90 0RF Continued citalopram 10 MG tablet 10 mg PO DAILY trazodone 100 MG tablet 100 mg PO QPM melatonin 3 mg capsule 12 mg PO HS PRN (Reason: sleep) saw palmetto 450 mg capsule 450 mg PO DAILY finasteride 5 mg tablet 5 mg PO DAILY tamsulosin 0.4 mg capsule 0.8 mg PO QPM simvastatin 20 mg tablet 20 mg PO QPM loratadine [Allerclear] 10 mg tablet 10 mg PO DAILY loperamide [Anti-Diarrheal (loperamide)] 2 mg capsule 2 mg PO Q6H PRN (Reason: diarrhea) Activity Restrictions: Activity as Tolerated Activity Restrictions/Additional Instructions: Diet: As tolerated Activity: Be active, but remember, if it hurts to do, don't do it Meds: Use all regular meds as usual For pain control: Tylenol 650 mg orally 4 x a day for next 3 days, then 4 x a day as needed Ibuprofen 400 mg orally 3 x a day with meals for the next 3 days, then 3 x a day with meals as needed Wound Care: May remove gauze over wound and gastrostomy tube and wash with soap and water gently. Pad area dry and cover with gauze or use a T-shirt to protect the wound and tube from the abdominal binder. Follow-up: General Surgery clinic in 7-10 days for staple removal or sooner as needed. Our clinic staff will contact you for an appointment date. Call the clinic at with questions or concerns Diet: Regular Print Language: Maldivian Patient Instructions: Surg Dc, Exploratory Laparotomy Stand Alone Forms: PCP List Vitals documented within 30 minutes of discharge?: Yes"
== END 2024-10-19 19:00 | disposition home or self-care (01) | DRG 327 ==
LOC: ED 14:44 → SDS 21:14 → ED 21:15 → MS2 21:15
PROVIDERS: ADMIT Surgery; ATTEND Surgery
DX: E66.9 Obesity, unspecified; N40.1 Benign prostatic hyperplasia with lower urinary tract symptoms; K22.2 Esophageal obstruction; Z68.31 Body mass index [BMI] 31.0-31.9, adult; R94.31 Abnormal electrocardiogram [ECG] [EKG]; R06.02 Shortness of breath; Z79.899 Other long term (current) drug therapy; D72.829 Elevated white blood cell count, unspecified; K31.89 Other diseases of stomach and duodenum; N13.8 Other obstructive and reflux uropathy; R07.9 Chest pain, unspecified; Z87.891 Personal history of nicotine dependence; K44.9 Diaphragmatic hernia without obstruction or gangrene; K56.2 Volvulus